=== PATIENT | female | born 1935 | race Hispanic/Latino ===

== ENCOUNTER → 2018-05-22 | Outpatient (CLI) | payer MEDICARE ==
[~2018-05-22] MED LIST: AMLO5TAB2 PO; ATOR10TA69 PO; CHLO500T3 PO; FENT1PAT61 TD; FLUT16H NASAL; FURO20TA4 PO; HYDR-4060 PO; LEVO100T12 PO; LOSA100T29 PO; METO100T7 PO; METO5TAB2 PO; PANT40TA25 PO; POTA20TA12 PO; RALO60TA13 PO; SERT100T PO
== END | disposition home or self-care (01) ==
LOC: RAH 12:25
PROVIDERS: ATTEND Internal Medicine
DX: M48.061 Spinal stenosis, lumbar region without neurogenic claudication (principal)
CPT/HCPCS: 72148